=== PATIENT | male | born 2000 | race Caucasian/White ===

== ENCOUNTER 2021-01-15 01:43 | Emergency (ER) | payer OTHER ==
[~2021-01-15] VITALS: Ht 177.8 cm; Wt 97.3 kg
[2021-01-15 03:19] VITALS: BP 118/72
== END 2021-01-15 03:21 | disposition home or self-care (01) ==
LOC: ER 01:45
DX: S09.8XXA Other specified injuries of head, initial encounter (principal); R11.0 Nausea; X58.XXXA Exposure to other specified factors, initial encounter; Y93.89 Activity, other specified; Y92.89 Other specified places as the place of occurrence of the external cause; Y99.8 Other external cause status
CPT/HCPCS: 99284